=== PATIENT | male | born 1985 | race Caucasian/White ===

== ENCOUNTER 2017-05-18 15:13 | Emergency (ER) | payer OTHER ==
[2017-05-18 15:39] VITALS: BP 122/81; TEMP 98.9; BMI 44.0
--- NOTE | 2017-05-18 16:04 | DI ---
EXAM: Right foot three views HISTORY: Trauma COMPARISON: None FINDINGS: No fracture or dislocation. The joints are normal. Small plantar calcaneal spur. Mild pos terior calcaneal enthesopathy. IMPERSSION: No fracture or dislocation.
--- NOTE | 2017-05-18 16:04 | DI ---
EXAM: Radiographs, right ankle HISTORY: Initial presentation for right ankle trauma. COMPARISON: None available. TECHNIQUE: Three views. FINDINGS: Bone mineralization is normal. There is no fracture or dislocation. Well corticated ossi fic fragment adjacent to the lateral malleolus likely relates to remote trauma. The joint spaces are maintained. Calcaneal spurs are present at the Achilles tendon insertion and plantar aponeurosis. No focal soft tissue abnormality is seen. IMPRESSION: No fracture or dislocation.
--- NOTE | 2017-05-18 16:13 | ED.PDOC ---
General ED Provider: Dr. ARLEY JERNIGAN Chief Complaint: Foot Pain/Injury Stated Complaint: droped a very heavy object on the right foot Time Seen by Physician: 15:30 Mode of Arrival: Walk-In Information Source: Patient Exam Limitations: No limitations Nursing and Triage Documentation Reviewed and Agree: Yes Reviewed sepsis parameters & appropriate labs ordered?: Yes System Inflammatory Response Syndrome: Not Applicable Sepsis Protocol: For patient's 13 years and over: Temp is 96.8 and below OR 101 and greater Pulse >90 BPM Resp >20/minute Acutely Altered Mental Status Are patient's symptoms suggestive of a new infection, such as: -Pneumonia -Skin, Soft Tissue -Endocarditis -UTI -Bone, Joint Infection -Implantable Device -Acute Abdominal Infection -Wound Infection -Meningitis -Blood Stream Catheter Infection -Unknown System Inflammatory Response Syndrome: Not Applicable Trauma/Injury Complaint Exam - Trauma Complaint/Exam Location of Pain or Injury: Reports: RLE (foot) Mechanism of Injury: Reports: Unknown (force truam 80lbs ) Onset/Duration: 1 hr Symptoms Are: Still present Timing of Treatment: Immediate Initial Severity: Moderate Current Severity: Moderate Character: Reports: Aching Aggravating: Reports: Movement Alleviating: Reports: Rest Associated Signs and Symptoms: Denies: LOC, Confusion, Memory loss, Lethargy, Vomiting, Bleeding, Bruising, Swelling, Extremity disuse, Painful respiration, Hoarseness, Dysphagia, Hemoptysis, Significant blood loss Penetrating Injury Risk Factors: Reports: None Nexus Low Risk Criteria: No post-midline CS tender, No evidence of intoxicat., No Altered LOC, No focal neuro deficit, No distracting injuries Differential Diagnoses: Fracture, Sprain, Strain Review of Systems - Review Of Systems Constitutional: Reports: No symptoms Eyes: Reports: No symptoms Ears, Nose, Mouth, Throat: Reports: No symptoms Respiratory: Reports: No symptoms Cardiac: Reports: No symptoms GI: Reports: No symptoms : Reports: No symptoms Musculoskeletal: Reports: Joint pain (right ankle and foot pain ) Skin: Reports: No symptoms Neurological: Reports: No symptoms Endocrine: Reports: No symptoms Hematologic/Lymphatic: Reports: No symptoms All Other Systems: Reviewed and Negative Past Medical History - Past Medical History Previously Healthy: Yes Endocrine: Reports: None Cardiovascular: Reports: None Respiratory: Reports: None Hematological: Reports: None Gastrointestinal: Reports: None Genitourinary: Reports: None Neuro/Psych: Reports: None Musculoskeletal: Reports: None Cancer: Reports: None - Surgical History General Surgical History: Reports: None - Family History Family History: Reports: None - Social History Smoking Status: Never smoker Hx Substance Use: No Alcohol Screening: None Physical Exam - Physical Exam Appearance: Well-appearing, No pain distress, Well-nourished Eyes: PATTY, EOMI, Conjunctiva clear ENT: Ears normal, Nose normal, Oropharynx normal Respiratory: Airway patent, Breath sounds clear, Breath sounds equal, Respirations nonlabored Cardiovascular: RRR, Pulses normal, No rub, No murmur GI/: Soft, Nontender, No masses, Bowel sounds normal, No Organomegaly Musculoskeletal: Normal strength, ROM intact, No edema, No calf tenderness Skin: Warm, Dry, Normal color Neurological: Sensation intact, Motor intact, Reflexes intact, Cranial nerves intact, Alert, Oriented Psychiatric: Affect appropriate, Mood appropriate Interpretation - Radiology Interpretation Radiology Interpretation By: Radiologist Radiology Results: No acute changes Critical Care Note - Critical Care Note Total Time (mins): 0 Course - Course Orders, Labs, Meds: Orders Category Date Time Status ANKLE, RIGHT MIN 3 VIEWS Stat RADS 05/18/17 15:40 Completed FOOT, RIGHT 3 VIEWS Stat RADS 05/18/17 15:40 Completed Vital Signs: Temp Pulse Resp BP Pulse Ox 05/18/17 15:31 98.9 F 97 H 20 122/81 95 Departure - Departure Time of Disposition: 16:13 Disposition: HOME SELF-CARE Discharge Problem: Injury of foot Instructions: Foot Sprain (ED) Condition: Good Pt referred to PMD for follow-up: Yes IPMP verified?: No Additional Instructions: Please call your Family Physician as soon as possible to schedule a follow-up appointment. Allergies/Adverse Reactions: Allergies No Known Allergies Allergy (Verified 05/18/17 15:37) Home Medications: Ambulatory Orders 1 [No Reported Medications] 11/07/12
[2017-05-18] MEDS ORDERED: NARCAN IVP STA (16:18)
== END 2017-05-18 16:30 | disposition home or self-care (01) ==
LOC: ED 15:13
DX: S99.921A Unspecified injury of right foot, initial encounter (principal); W22.8XXA Striking against or struck by other objects, initial encounter
CPT/HCPCS: 99283